=== PATIENT | female | born 1950 | race Caucasian/White ===

== ENCOUNTER 2016-11-21 06:59 | Day surgery (SDC) | payer MEDICARE, OTHER ==
[~2016-11-21] VITALS: Ht 160 cm; Wt 64.2 kg
[2016-11-21] MEDS ORDERED: PROPOFOL 20 ML ONE ×2 (08:11→08:59)
[2016-11-21 08:25] VITALS: Ht 160 cm; Wt 64.2 kg
[2016-11-21 08:30] VITALS: BP 151/67; PULSE 53; RESP 20
[2016-11-21] MEDS ORDERED: EXCEDRIN PO (08:30)
[2016-11-21] MEDS ORDERED: LIPITOR PO (08:30)
[2016-11-21] MEDS ORDERED: CELEBREX PO (08:30)
[2016-11-21] MEDS ORDERED: IMITREX PO (08:30)
[2016-11-21] MEDS ORDERED: XANAX PO (08:30)
[2016-11-21 09:22] VITALS: BP 126/64; PULSE 58; RESP 14
--- NOTE | 2016-11-25 12:04 | GILP ---
DATE OF PROCEDURE: 11/22/2016 PROCEDURE: Colonoscopy. SURGEON: Radha Andres MD PREOPERATIVE DIAGNOSES: 1. Change in bowel habits. 2. Screening colonoscopy. POSTOPERATIVE DIAGNOSES: 1. Colonoscopy all the way to the cecum. 2. Diverticulosis of the colon. 3. Internal hemorrhage. 4. No colon neoplasm was identified. INDICATION: The patient is a 66-year-old female patient, who noticed a change in the bowel habits. She never had a screening colonoscopy. The procedure and possible complications were well explained to the patient. She understood and consented to the procedure. DESCRIPTION OF PROCEDURE: Under the influence of anesthesia, the colonoscope was carefully introduced into the rectum and under direct vision it was advanced all the way to the cecum. FINDINGS: Patient has diverticulosis of the colon. She also had internal hemorrhoids. No colon neoplasm was identified. She tolerated the procedure very well and there were no complications from the procedure. At the end of the procedure, she was awake with stable vital signs and she was discharged to the care of her family. IMPRESSION: 1. Colonoscopy all the way to the cecum. 2. Diverticulosis of the colon. 3. Internal hemorrhoids. PLAN: 1. High fiber diet. 2. Screening colonoscopy in 10 years. Dictated By: MD LUBA Bautista/pernell/bjc /Document#: [id number]
== END 2016-11-21 17:00 | disposition home or self-care (01) ==
LOC: GIL 06:59
PROVIDERS: ATTEND Internal Medicine Gastroenterology
DX: R19.4 Change in bowel habit (principal); K57.90 Diverticulosis of intestine, part unspecified, without perforation or abscess without bleeding; K64.8 Other hemorrhoids; F41.8 Other specified anxiety disorders; E78.5 Hyperlipidemia, unspecified